=== PATIENT | male | born 2000 | race Hispanic/Latino ===

== ENCOUNTER 2022-01-02 10:17 | Emergency (ER) | payer SELFPAY ==
[~2022-01-02] VITALS: Ht 170.2 cm; Wt 100.4 kg
[2022-01-02] MEDS ORDERED: METRONIDAZOLE500 MG PO (10:59)
[2022-01-02] MEDS ORDERED: CLONIDINE HCL0.1 MG PO (10:59)
[2022-01-02] MEDS ORDERED: ONDANSETRON ODT4 MG PO (10:59)
== END 2022-01-02 11:21 | disposition home or self-care (01) ==
LOC: FSED 10:43
DX: R00.2 Palpitations (principal); K52.9 Noninfective gastroenteritis and colitis, unspecified; R11.0 Nausea; R51.9 Headache, unspecified; F17.210 Nicotine dependence, cigarettes, uncomplicated
CPT/HCPCS: 80053; 82553; 84484; 85025; 93005; 99283